=== PATIENT | male | born 1985 | race Two or more races ===

== ENCOUNTER 2016-08-18 16:19 | Emergency (ER) | payer OTHER ==
[2016-08-18 16:30] VITALS: BP 131/85; PULSE 68; RESP 16; TEMP 98.4; O2SAT 97
--- NOTE | 2016-08-18 16:59 | EDPHY ---
H & P Stated Complaint: Hit in head by metal box;lac to forehead;no LOC Time Seen by Provider: 08/18/16 16:50 HPI/ROS: Chief complaint: Forehead laceration History of Present Illness: This is a 31-year-old male, up-to-date on his tetanus, who presents to the emergency department for a forehead laceration. A few hours ago he struck his forehead against a metal outlet hanging from the ceiling. He sustained a small cut. Minimal pain. He is concerned as it continues to ooze blood. He was not knocked down. He was not knocked out, there was no loss of consciousness. Denies headache. Denies neck pain. Denies paresthesias, weakness or paralysis or bowel or bladder dysfunction. He is not on blood thinners. No other trauma reported. - Personal History Current Tetanus Diphtheria and Acellular Pertussis (TDAP): Yes - Social History Smoking Status: Never smoked - Physical Exam Exam: General Appearance: Alert, nontoxic. Eyes: Pupils equal and round no injection. ENT: No hemotympanum, no olivo sign, no raccoon eyes Respiratory: Chest is non tender, lungs are clear to auscultation. Cardiac: regular rate and rhythm Musculoskeletal: No tenderness or bony deformity or crepitus around the forehead wound. Head is normocephalic. Spine is nontender to palpation along its entire length. Extremities have full range of motion and are non tender. Skin: 1 cm superficial laceration to the forehead. Constitutional: Initial Vital Signs Temperature (C) 36.9 C 08/18/16 16:20 Heart Rate 68 08/18/16 16:20 Respiratory Rate 16 08/18/16 16:20 Blood Pressure 131/85 H 08/18/16 16:20 O2 Sat (%) 97 08/18/16 16:20 O2 Delivery Mode Room Air Allergies/Adverse Reactions: No Known Allergies Allergy (Unverified 08/18/16 16:27) Home Medications: Medication Instructions Recorded NK [No Known Home Meds] 08/18/16 Medical Decision Making Procedures: Procedure: Laceration repair. Verbal consent was obtained from the patient. The 1 cm laceration on the forehead was anesthetized in the usual fashion. The wound was irrigated, draped and explored to its base with a gloved finger. There were no deep structures involved. No tendon injury was identified. The wound was repaired with Dermabond. The wound repair was simple. The procedure was performed by myself. ED Course/Re-evaluation: Patient seen under the supervision of my secondary supervising physician Dr. Flaquito Dyer. Patient presents to the emergency department for laceration to his forehead sustaining after he was struck in the head by a power out let hanging from a cable. This is a minimal mechanism. There was no loss of consciousness, patient neurologically intact, I do not believe imaging studies are warranted this time. The wound has been cleaned. It is more of an abrasion than a true laceration. Skin glue is been placed. His tetanus is up- to-date. Patient is discharged home. Home care is discussed. She is asked to follow up with worker's compensation for recheck. Return precautions given. Patient voiced understanding and agreement with plan. Differential Diagnosis: Included but not limited to contusion, abrasion, laceration, unlikely bony fracture or intracranial bleed Departure - Departure Disposition: Home, Routine, Self-Care Clinical Impression: Forehead laceration Qualifiers: Encounter type: initial encounter Qualified Code(s): S01.81XA - Laceration without foreign body of other part of head, initial encounter Condition: Good Instructions: Head Injury (ED), Skin Adhesive Care (ED) Additional Instructions: Follow-up with a primary care doctor or worker's compensation for recheck If symptoms worsen or new symptoms develop return to the emergency department for recheck Referrals: NONE *PRIMARY CARE P,. [Primary Care Provider] - As per Instructions Washington Dumont MD [Medical Doctor] - As per Instructions
[2016-08-18] MEDS ORDERED: SKIN ADHESIVE (DERMABOND) 1 EACH TP ONE (17:08)
== END 2016-08-18 17:15 | disposition home or self-care (01) ==
PROC: 0HQ1XZZ Repair Face Skin, External Approach (ICD-10-PCS; principal; 2016-08-18)
DX: S01.81XA Laceration without foreign body of other part of head, initial encounter (principal); W22.8XXA Striking against or struck by other objects, initial encounter